=== PATIENT | female | born 1945 | race Caucasian/White ===

== ENCOUNTER 2016-09-02 19:22 | Observation (INO) | payer MEDICARE, MEDICAID ==
[2016-09-02] MEDS ORDERED: Albuterol/Ipratropium NEB.SOL* Albuterol 2.5 MG/Ipratropium 0.5 MG 3 ML INH ONE (19:45)
[2016-09-02] MEDS ORDERED: methylPREDNISolone 125 MG* 2 ML VIAL IV ONE (19:45)
--- NOTE | 2016-09-02 20:00 | ED ---
Judi Samson Claudia, scribed for Rusty Blanco MD on 09/02/16 at 1948 . Shortness of Breath - HPI Summary HPI Summary: 70 year old pt presents to the ED with SOB. Pt notes gradual onset of SX over the past 4-6 days. Pt states productive cough with clear sputum and SOB at rest. Pt denies the use of oxygen at home. Pt states PMHx of Sleep Apnea in which she usually wears a mask but has not recently. Pt denies the use of inhalers She also denies any alleviating or aggravating factors. - History of Current Complaint Chief Complaint: EDShortnessOfBreath Time Seen by Provider: 09/02/16 19:42 Hx Obtained From: Patient Onset/Duration: Gradual Onset, Lasting Days, Still Present Timing: Constant Dyspnea At: Rest Associated Signs & Symptoms: Cough (Productive) - Allergy/Home Medications Allergies/Adverse Reactions: Allergies Allergy/AdvReac Type Severity Reaction Status Date / Time Penicillins [PCN] Allergy Unknown Verified 09/02/16 19:31 Reaction Details Tetanus Toxoid Allergy Unknown Verified 09/02/16 19:31 Reaction Details Tetracycline Allergy Unknown Verified 09/02/16 19:31 Reaction Details Home Medications: Home Medications Atorvastatin* [Lipitor 20 MG*] 20 mg PO BEDTIME 09/03/16 [History Confirmed ] Torsemide TAB* [Demadex*] 20 mg PO DAILY 09/03/16 [History Confirmed 09/03/16] PMH/Surg Hx/FS Hx/Imm Hx Previously Healthy: Yes Endocrine/Hematology History: Reports: Hx Diabetes Denies: Hx Anemia Cardiovascular History: Reports: Hx Hypertension Denies: Hx Congestive Heart Failure, Hx Pacemaker/ICD Respiratory History: Reports: Hx Asthma, Hx Chronic Obstructive Pulmonary Disease (COPD) GI History: Reports: Hx Gall Bladder Disease Denies: Hx Jaundice Sensory History: Denies: Hx Hearing Aid Psychiatric History: Reports: Hx Anxiety, Hx Depression Denies: Hx Panic Disorder - Cancer History Cancer Type, Location and Year: rt breast ca Hx Chemotherapy: Yes Hx Radiation Therapy: Yes - Surgical History Surgery Procedure, Year, and Place: HYSTERECTOMY, LUMPECTOMY TWICE with LYMPH NODE REMOVAL RT SIDE,CHOLECYSTECTOMY Hx Anesthesia Reactions: No Infectious Disease History: No Infectious Disease History: Denies: Traveled Outside the [place] in Last 30 Days - Social History Occupation: Retired Lives: Alone Alcohol Use: None Substance Use Type: Reports: None Hx Tobacco Use: Yes - 40 YRS Smoking Status (MU): Current Every Day Smoker Type: Cigarettes Review of Systems Constitutional: Negative Negative: Fever Eyes: Negative ENT: Negative Cardiovascular: Negative Positive: Shortness Of Breath, Cough - clear productive cough Gastrointestinal: Negative Genitourinary: Negative Musculoskeletal: Negative Skin: Negative Neurological: Negative Psychological: Normal All Other Systems Reviewed And Are Negative: Yes Physical Exam Triage Information Reviewed: Yes Vital Signs On Initial Exam: Initial Vitals Temp Pulse Resp BP Pulse Ox 97.8 F 94 20 151/95 96 09/02/16 19:28 09/02/16 19:28 09/02/16 19:28 09/02/16 19:28 09/02/16 19:28 Vital Signs Reviewed: Yes Appearance: Positive: Ill-Appearing - moderate resp distress Skin: Positive: Warm Head/Face: Positive: Normal Head/Face Inspection Eyes: Positive: SONJA ENT: Positive: Hearing grossly normal Neck: Positive: Supple Respiratory/Lung Sounds: Positive: Decreased Breath Sounds, Rales - coarse diffuse bilat Cardiovascular: Positive: Normal Abdomen Description: Positive: Nontender, Soft Bowel Sounds: Positive: Present Musculoskeletal: Positive: Strength/ROM Intact Neurological: Positive: Sensory/Motor Intact Psychiatric: Positive: Affect/Mood Appropriate Diagnostics - Vital Signs Vital Signs Temp Pulse Resp BP Pulse Ox 09/02/16 19:28 97.8 F 94 20 151/95 96 - Laboratory Result Diagrams: 09/02/16 20:10 09/02/16 20:10 Lab Statement: Any lab studies that have been ordered have been reviewed, and results considered in the medical decision making process. - Radiology CXR Xray Interpretation: Positive (See Comments) - The constellation of findings is most consistent with pulmonary vascular congestion and interstitial edema. Correlate with clinical assessment as well as bronchopneumonia could have a similar appearance. Radiology Interpretation Completed By: Radiologist - EKG 1944 EKG Rhythm: Atrial Fibrillation EKG Interpretation: rapid ventricular response. 110 beats/min Course/Dx - Course Assessment/Plan: MDM: After EKG, CXR, lab work and observation the pt will be admitted to [facility] for further care. - Diagnoses Provider Diagnoses: Respiratory distress - Physician Notifications Discussed Care of Patient With: Respiratory Therapists are paged at 1945. Dicussed pt with Dr. Chapman 2199. - Dr. Chapman will admit to [facility] 2331 Time Discussed With Above Provider: 19:46 - Critical Care Time Critical Care Time: 30-74 min Discharge - Discharge Plan Condition: Fair Disposition: ADMITTED TO [facility] Referrals: Caleb Sosa MD [Primary Care Provider] - The documentation as recorded by the Judi cavazos Claudia accurately reflects the service I personally performed and the decisions made by me, Rusty Blanco MD.
[2016-09-02 20:31] LABS: Hematocrit 45 % (35-47); Mean Corpuscular HGB Conc 32 g/dl (31-36); Mean Corpuscular Hemoglobin 28 pg (27-31); Mean Corpuscular Volume 88 fL (80-97); Mean Platelet Volume 7 um3 (7.4-10.4); Red Blood Count 5.07 10^6/ul (4.0-5.4); Red Cell Distribution Width 19 % (10.5-15); White Blood Count 15.3 10^3/ul (3.5-10.8)
[2016-09-02] MEDS ORDERED: Azithromycin IV(*) 250 MG in NS 0.9% 250 ML* 250 ML IVPB ONE (20:34)
[2016-09-02] MEDS ORDERED: cefTRIAXone VIAL(*) 1,000 MG in NS 0.9% 50 ML* 50 ML IVPB ONE (20:35)
[2016-09-02 20:38] LABS: Albumin 3.4 g/dL (3.2-5.2); BUN/Creatinine Ratio 23.2 (8-20); Calcium 9.1 mg/dL (8.6-10.3); EGFR African American 107.9 (>60); EGFR Non-African American 83.9 (>60); Globulin 3.1 g/dL (2-4); Potassium 4.5 mmol/L (3.5-5.0); Total Bilirubin 0.5 mg/dL (0.2-1.0); Total Protein 6.5 g/dL (6.4-8.9)
[2016-09-02 20:39] LABS: Troponin I 0.01 ng/mL (<0.04)
--- NOTE | 2016-09-02 21:23 | RAD ---
Indication: Multiple days shortness of breath and cough. Clear sputum. Chronic obstructive pulmonary disease. History of tobacco use. Comparison: April 03, 2016 CT and July 06, 2013 chest radiograph. Technique: Sitting AP and lateral chest views. Report: Large body habitus limits image quality. Cardiomegaly and prominent ill-defined central pulmonary vasculature. Diffuse prominence of the mid to basilar interstitial markings. Elevated lung volumes. Negative for pleural effusion or pneumothorax. RIGHT breast and axillary surgical clips. IMPRESSION: The constellation of findings is most consistent with pulmonary vascular congestion and interstitial edema. Correlate with clinical assessment as well as bronchopneumonia could have a similar appearance.
[2016-09-02] MEDS ORDERED: Furosemide IV* 10 MG/ML 10 ML VIAL (100 MG) IV ONE (21:35)
[2016-09-02] MEDS ORDERED: Iodixanol* (CONTRAST) 320 MG/ML 100 ML SDV IV ONE (23:38)
[2016-09-03] MEDS ORDERED: Acetaminop/Codeine 30 MG TAB* 1 TAB (300 MG/30 MG) PO PRN (00:17)
[2016-09-03] MEDS ORDERED: Diazepam TAB(*) 5 MG PO PRN (00:17)
[2016-09-03] MEDS ORDERED: Acetaminophen TAB* 325 MG PO PRN (00:20)
[2016-09-03] MEDS ORDERED: Benzonatate CAP* 100 MG PO PRN (00:20)
[2016-09-03] MEDS ORDERED: Albuterol/Ipratropium NEB.SOL* Albuterol 2.5 MG/Ipratropium 0.5 MG 3 ML INH PRN (00:21)
[2016-09-03] MEDS ORDERED: Dextrose 50% Syringe 50 ML* 25 GM/50 ML SYRINGE IV PUSH PRN (00:21)
[2016-09-03] MEDS ORDERED: Levofloxacin 500 MG IVPREMIX(* 500 MG/100 ML BAG IVPB SCH (01:30)
--- NOTE | 2016-09-03 03:00 | HP ---
CC: Dr. Caleb Sosa* HISTORY AND PHYSICAL: DATE OF ADMISSION: 09/03/16 CHIEF COMPLAINT: Shortness of breath. HISTORY OF PRESENT ILLNESS: The patient is a 70-year-old woman who states over the last couple of days she has been having a bad cough that is incessant. Over the last day and a half, it has gotten much, much worse where she cannot even catch her breath. She said she has had increased wheezing and she cannot even complete a sentence. She denies fevers or chills. When she coughs, clear phlegm comes up. She has no chest tightness. It can happen any time. There is no difference if she is lying flat or sitting up or she is exerting herself. She also notes she does have obstructive sleep apnea and has not used her CPAP in a week because she has not cleaned the mask. PAST MEDICAL HISTORY: She has a past medical history as noted for the sleep apnea; hypertension; diabetes; right breast cancer, status post lumpectomy and chemotherapy 10 years ago; morbid obesity; depression; anxiety; and GERD. PAST SURGICAL HISTORY: Significant for hysterectomy, lumpectomy, and cholecystectomy. CURRENT MEDICATIONS: 1. Torsemide 20 mg daily. 2. Lipitor 20 mg at bedtime. 3. Lantus insulin 26 units subcu q.24 hours. 4. Valium 5 mg 3 times a day as needed. 5. Tylenol with Codeine one tablet every 6 hours as needed. 6. Januvia 50 mg daily. 7. Ramipril 5 mg daily. 8. Paroxetine 40 mg daily. 9. Omeprazole 20 mg daily. ALLERGIES: She has an allergy/adverse reaction to PENICILLIN, which makes her itchy; SULFA, she said she gets violently ill. FAMILY HISTORY: Mother from ALS. Father from lung cancer. SOCIAL HISTORY: Lives alone, a retired [employer]. She still smokes a half to three quarters of a pack a day and has been doing since she was 15 years old , which is 55 years. Healthcare proxy is her sister, María Crenshaw, who lives in [place]. She has not . She has no children. REVIEW OF SYSTEMS: A 14-point review of systems was completed with the patient. All pertinent positives and negatives are in the History of Present Illness; otherwise, it is negative. PHYSICAL EXAMINATION GENERAL: Pleasant woman lying in bed, in no acute distress. VITAL SIGNS: Temperature 97.8 degrees, heart rate 94 beats per minute, respiratory rate 20 breaths per minute, pulse ox 96%, blood pressure 151/95. HEENT: Normocephalic, atraumatic. Pupils equal, round, and reactive to light. Moist mucous membranes. NECK: Supple. No JVD, bruits, palpable thyroid or lymphadenopathy. CHEST: She has got diminished breath sounds bilaterally. CARDIOVASCULAR: S1, S2 appreciated. ABDOMEN: Obese. Positive bowel sounds in all four quadrants, soft, nontender, nondistended. EXTREMITIES: No cyanosis or clubbing. Bilateral edema. +2 peripheral pulses bilaterally. NEUROLOGIC: Alert and oriented x3. Moves all extremities. SKIN: No rashes or abnormalities. DIAGNOSTIC STUDIES/LAB DATA: Sodium 137, potassium 4.5, chloride 102, CO2 31, BUN 16, creatinine 0.69, glucose 119, BNP is 200. White count 15.3, hemoglobin 14.0, hematocrit 45, platelets 294. D-dimer is 274. Chest x-ray is interpreted by Radiology says, the constellation of findings is most consistent with pulmonary vascular congestion and interstitial edema, correlate with clinical assessment as well, bronchial pneumonia could have a similar appearance. EKG shows atrial fibrillation with a rate of 110 beats per minute, normal axis, right bundle branch block pattern. ASSESSMENT AND PLAN: 1. Dyspnea. At this point, it is difficult to say. She has a slightly elevated D- dimer, but does not sound like she is presenting like a PE. It could be her rapid atrial fibrillation, although it is not quite that rapid. This appears to be new onset as well. Certainly an echocardiogram and possibly p.o. Cardizem may benefit her as well. It sounds more like a COPD and she is still a smoker, but she is not wheezing but she is also not moving much air. I will start her on Solu-Medrol, start her on Levaquin. I will start her on DuoNeb but I will also start her on Cardizem and check an echo in the morning. Depending on echo's findings, we may want to pursue a PE study, although I think again this is an unlikely scenario. She will also be a likely candidate for anticoagulation as her CHADS2 score is at least 2. 2. Diabetes mellitus. Hold oral medications; fingersticks with sliding scale insulin and Lantus. 3. Depression, anxiety. Continue Paxil, appears stable. 4. Gastroesophageal reflux disease, stable. Continue PPI. 5. Fluids, electrolytes, nutrition: Consistent carb diet. 6. DVT prophylaxis: Heparin subcu. 7. The patient is a full code. TIME SPENT: Over 75 minutes was spent on this H and P; and more than 40 minutes of which was spent in direct [id number] contact with the patient in evaluation, physical exam and counseling and coordination of care. [id number]/[facility] #: [id number] MTDD
[2016-09-03] MEDS: Insulin GLARGINE(*) 1 UNITS UNIT SUBCUT SCH (03:03)
[2016-09-03] MEDS: methylPREDNISolone SOD 40 MG* 1 ML VIAL IV SCH ×2 (03:03→09:28)
[2016-09-03] MEDS ORDERED: Heparin VIAL(*) 5000 UNITS/ML VIAL (FIVE THOUSAND) SUBCUT SCH (06:00)
[2016-09-03] MEDS: Diltiazem TAB* 30 MG PO SCH ×2 (06:05→12:13)
[2016-09-03] MEDS ORDERED: Enoxaparin(*) 150 MG/ML 1 ML SYRINGE SUBCUT SCH (07:00)
[2016-09-03] MEDS ORDERED: Perflutren Lipid Microsphere* 3 ML VIAL ONE (08:59)
[2016-09-03] MEDS: PARoxetine HCL TAB* 40 MG PO SCH (09:26)
[2016-09-03] MEDS: Ramipril CAP* 5 MG PO SCH (09:26)
[2016-09-03] MEDS: Torsemide TAB* 20 MG PO SCH (09:27)
[2016-09-03] MEDS: Omeprazole CAP* 20 MG PO SCH (09:27)
[2016-09-03] MEDS: Insulin LISPRO* 1 UNITS UNIT SUBCUT SCH ×4 (09:27→21:03)
[2016-09-03] MEDS: CMCS:SitaGLIPtin (NF) 25 MG TAB PO SCH (09:40)
--- NOTE | 2016-09-03 11:20 | RAD ---
Indication: Shortness of breath, elevated d-dimer. Contrast: Administered 96.0 ml of VISAPAQUE 320 mgi/ml CTA of the chest was performed after IV contrast administration. Sagittal and coronal reconstructed images were obtained. Inferior thyroid lobes are heterogeneous with enlarged thyroid gland. The right lobe demonstrates a exophytic nodule arising from the lower pole of the right lobe. The pulmonary arterial tree is poorly opacified and this is a limited exam. Motion artifact degrades the images. The main left and right pulmonary arteries show no evidence of filling defects. The smaller lobar arteries and segmental arteries are limited in evaluation. The aorta demonstrates no evidence of aneurysmal dilatation or aortic dissection. Atelectasis is noted in the left lower lobe as well as in the right middle lobe anteriorly. There appears to be interstitial edema with vascular congestion. Cardiomegaly without evidence of pericardial effusion is noted. Small pleural effusion is noted. The visualized abdominal organs demonstrate an enlarged left lobe suggestive of parenchymal liver disease. No other masses are definitively identified. IMPRESSION: ENLARGED THYROID WHICH APPEARS HETEROGENEOUS. THE MAIN PULMONARY ARTERY DEMONSTRATES NO FILLING DEFECTS. THE SMALLER ARTERIES ARE LIMITED IN EVALUATION. CARDIOMEGALY WITHOUT EVIDENCE OF PERICARDIAL EFFUSION. EVIDENCE OF INTERSTITIAL EDEMA, PLEURAL EFFUSION AND RIGHT MIDDLE LOBE AND LEFT LOWER LOBE ATELECTASIS.
[2016-09-03] MEDS ORDERED: Metoprolol Tartrate TAB* 25 MG PO SCH (13:00)
[2016-09-03] MEDS ORDERED: Diltiazem TAB* 30 MG PO ONE (13:12)
--- NOTE | 2016-09-03 13:12 | PN ---
Subjective Date of Service: 09/03/16 Interval History: Pt is feeling well. She states she feels well enough to actually go home. She denies any SOB at this time. No chest pain. Objective Active Medications: Acetaminophen (Tylenol Tab*) 650 mg PO Q4H PRN PRN Reason: FEVER/PAIN Acetaminophen/Codeine Phosphate (Tylenol/Codeine 30 Mg Tab*) 1 tab PO Q6H PRN PRN Reason: PAIN Albuterol/Ipratropium (Duoneb (Albuterol 2.5 Mg/Ipratropium 0.5 Mg)) 1 neb INH Q4H PRN PRN Reason: SOB/WHEEZING Atorvastatin Calcium (Lipitor*) 20 mg PO BEDTIME AILEEN Benzonatate (Tessalon Cap*) 200 mg PO TID PRN PRN Reason: COUGH Dextrose (D50w Syringe 50 Ml*) 12.5 gm IV PUSH .FOR FS < 60 - SS PRN PRN Reason: FS < 60 Diazepam (Valium Tab(*)) 5 mg PO TID PRN PRN Reason: ANXIETY Diltiazem HCl (Cardizem Tab*) 60 mg PO Q6HR [facility] Insulin Glargine (Lantus(*)) 26 units SUBCUT Q24H [facility] Last Admin: 09/03/16 03:03 Dose: 26 units Insulin Human Lispro (Humalog*) 0 units SUBCUT ACHS [facility] PRN Reason: Protocol Last Admin: 09/03/16 12:11 Dose: 6 units Omeprazole (Prilosec Cap*) 20 mg PO DAILY [facility] Last Admin: 09/03/16 09:27 Dose: 20 mg Paroxetine HCl (Paxil Tab*) 40 mg PO DAILY [facility] Last Admin: 09/03/16 09:26 Dose: 40 mg Ramipril (Altace Cap*) 5 mg PO DAILY [facility] Last Admin: 09/03/16 09:26 Dose: 5 mg Rivaroxaban (Xarelto (*)) 20 mg PO 2100 [facility] Sitagliptin Phosphate (Januvia (Nf)) 50 mg PO DAILY [facility] Last Admin: 09/03/16 09:40 Dose: 50 mg Torsemide (Demadex*) 20 mg PO DAILY [facility] Last Admin: 09/03/16 09:27 Dose: 20 mg Vital Signs 09/03/16 09/03/16 09/03/16 01:11 07:21 09:29 Temperature 98.4 F 98.0 F Pulse Rate 110 106 86 Respiratory 26 22 16 Rate Blood Pressure 144/73 136/84 (mmHg) O2 Sat by Pulse 97 94 92 Oximetry 09/03/16 11:09 Temperature 98.0 F Pulse Rate 103 Respiratory 20 Rate Blood Pressure 124/54 (mmHg) O2 Sat by Pulse 94 Oximetry Oxygen Devices in Use Now: None Appearance: Elderly female sitting up in a chair eating lunch, NAD Eyes: No Scleral Icterus Ears/Nose/Mouth/Throat: Mucous Membranes Moist Respiratory: Symmetrical Chest Expansion and Respiratory Effort, - - fine crackles about [address] bilaterally Cardiovascular: NL Sounds; No Murmurs; No JVD, No Edema, - - irregularly irregular, mildly tachycardic Abdominal: NL Sounds; No Tenderness; No Distention Extremities: No Clubbing, Cyanosis Skin: No Rash or Ulcers, No Nodules or Sclerosis Neurological: Alert and Oriented x 3 Result Diagrams: 09/02/16 20:10 09/02/16 20:10 Assess/Plan/Problems-Billing Ms Burk is a 70 yo F who has a h/o HTN, type II DM, DANO and depression/ anxiety who presented to the ER with c/o chest pain. - Patient Problems (1) Dyspnea Current Visit: Yes Status: Acute Code(s): R06.00 - DYSPNEA, UNSPECIFIED SNOMED Code(s): 662055596 Comment: I am most suspicous that the patient's dyspnea is multifactorial from possible COPD and possibly CHF from afib. The patient does not feel palplitations so she could have developed a tachycardia induced CM. Her SOB is much improved today after being treated for a COPD exacerbation and CHF. Will continue to treat for COPD exacerbation with steroids but stop ABx as there is no clear signs the patient is infected. (2) Afib Current Visit: Yes Status: Acute Code(s): I48.91 - UNSPECIFIED ATRIAL FIBRILLATION SNOMED Code(s): 13370733 Comment: This is a new diagnosis. Will continue on diltiazem for now (if echo shows reduced EF will need to change to metoprolol). I discussed anticoagulation options and at this time the patient chooses to start on xarelto. Echo results are pending. The patient is hopeful for d/c home today and if she is able to get her HR under control and her echo is not concerning than that will be a possibility. (3) Hypertension Current Visit: Yes Status: Acute Code(s): I10 - ESSENTIAL (PRIMARY) HYPERTENSION SNOMED Code(s): 79643725 Comment: BP is under good control. Continue current regimen but monitor as I have increased the diltiazem dose. (4) Diabetes Current Visit: Yes Status: Chronic Code(s): E11.9 - TYPE 2 DIABETES MELLITUS WITHOUT COMPLICATIONS SNOMED Code(s): 19015074 Comment: Type II DM. Sugars are under poor control. Increase lantus to 30 units. Continue lispro sliding scale. (5) GERD (gastroesophageal reflux disease) Current Visit: Yes Status: Chronic Code(s): K21.9 - GASTRO-ESOPHAGEAL REFLUX DISEASE WITHOUT ESOPHAGITIS SNOMED Code(s): 281725693 Comment: Continue omeprazole. (6) DVT prophylaxis Current Visit: Yes Status: Acute Code(s): WHS9348 - SNOMED Code(s): 043544629 Comment: xarelto to start tonight (7) Full code status Current Visit: Yes Status: Acute Code(s): Z78.9 - OTHER SPECIFIED HEALTH STATUS SNOMED Code(s): 842640327
[2016-09-03] MEDS: Diltiazem TAB* 60 MG PO SCH (17:31)
[2016-09-03] MEDS ORDERED: Rivaroxaban TAB(*) 20 MG TAB PO SCH (18:00)
--- NOTE | 2016-09-03 18:05 | ECHO ---
Patient: DEJON BARBA [facility] Rec#: [id number] : 1945 Date: 09/03/2016 Age: 70y Height: 165.1 cm / 65.0 in Weight: 126.1 kg / 277.9 lbs Sex: F BSA: 2.28 Room#: [facility] Admit Date#: 09/03/2016 Type: Inpatient Referring: Matthew Chapman MD Reading: Olu Asif MD Film Color Tester: Jennifer PelaezMARGI CC: Caleb Sosa MD Transthoracic Echocardiogram Indication: New A-Fib BP: 144/73 HR: 96 Rhythm: A-Fib Indications Atrial Fibrillation Findings History: HTN, DM, breast cancer, chemotherapy, [place], GERD, DANO with CPAP, smoker. Technical Comments: The study is technically difficult. The study is technically limited due to poor apical windows. The study is technically limited due to patient body habitus. Completed at 1015. Left Ventricle: The left ventricular chamber size is normal. Mild concentric left ventricular hypertrophy is observed. Global left ventricular wall motion and contractility are within normal limits. The left ventricle appears hyperdynamic. The estimated ejection fraction is 60-65%. The assessment of diastolic function is non-diagnostic. Left Atrium: The left atrium is moderately dilated. Right Ventricle: The right ventricle is mildly dilated. The right ventricular global systolic function is mildly reduced. Right Atrium: The right atrial cavity size is severely dilated. Aortic Valve: The aortic valve is trileaflet. The aortic valve leaflets are mildly thickened. There is moderate thickening of the non coronary cusp. There is no evidence of aortic regurgitation. There is no evidence of aortic stenosis. Mitral Valve: The mitral valve leaflets are mildly thickened. There is trace to mild mitral regurgitation. There is no evidence of mitral stenosis. Tricuspid Valve: The tricuspid valve leaflets are normal. There is moderate tricuspid regurgitation. There is evidence of moderate pulmonary hypertension. There is no tricuspid stenosis. Pulmonic Valve: The pulmonic valve appears normal. There is a trace pulmonic regurgitation. There is no pulmonic stenosis. Pericardium: There is no significant pericardial effusion. A pericardial fat pad is visualized. Aorta: There is no dilatation of the ascending aorta. There is no dilatation of the aortic arch. There is no dilation of the aortic root. Pulmonary Artery: The main pulmonary artery is not well visualized. Venous: The inferior vena cava is dilated. There is less than 50% respiratory change in the inferior vena cava dimension. Contrast: Definity was used to optimize study. 2.5mL of diluted Definity was utilized. Intravenous contrast was used to enhance endocardial border definition. Conclusions The study is technically difficult. Mild concentric left ventricular hypertrophy is observed. The left ventricle appears hyperdynamic. The estimated ejection fraction is 60-65%. The left atrium is moderately dilated. The right ventricle is mildly dilated. The right ventricular global systolic function is mildly reduced. The right atrial cavity size is severely dilated. The aortic valve leaflets are mildly thickened. There is moderate thickening of the non coronary cusp. There is trace to mild mitral regurgitation. There is moderate tricuspid regurgitation. There is evidence of moderate pulmonary hypertension. Similar to 06/2013 Measurements Name Value Normal Range RVIDd (AP) 2D 3.7 cm (0.9 - 2.6) RVDdMajor (2D) 3.9 cm (2.2 - 4.4) RAd ISD 4CH 6.6 cm (3.4 - 4.9) RA (A4C)W 6.8 cm (2.9 - 4.6) IVSd (2D) 1.1 cm (0.6 - 1) LVPWd (2D) 1.1 cm (0.6 - 1) LVIDd (2D) 5 cm (3.6 - 5.4) LVIDs (2D) 3.5 cm - LV FS (2D) 30 % (25 - 45) Aortic Annulus 1.9 cm (1.4 - 2.6) Ao root diameter (2D) 2.8 cm (2.1 - 3.5) Ascending Ao 3.4 cm (2.1 - 3.4) Aortic arch 2.5 cm (1.8 - 3.4) LA dimension (AP) 2D 5.2 cm (2.3 - 3.8) LAd ISD 4CH 6.7 cm (2.9 - 5.3) LA ISD 4CH W 4.6 cm (2.5 - 4.5) Name Value Normal Range LA ESV SP 4CH (A/L) 94 ml - LA ESV SP 2CH (A/L) 114 ml - LA ESV BP (A/L) 105 ml - LA ESV BP (A/L) index 46.02 ml/m2 - LA ESV SP 4CH (MOD) 87 ml - LA ESV SP 2CH (MOD) 104 ml - Name Value Normal Range MV E-wave Vmax 1.29 m/sec - MV deceleration time 216.2 msec - LV septal e' Vmax 0.09 m/sec - LV lateral e' Vmax 0.07 m/sec - LV E:e' septal ratio 14.3 ratio - LV E:e' lateral ratio 18.4 ratio - Name Value Normal Range AV Vmax 1.6 m/sec - AV VTI 33.02 cm - AV peak gradient 10.64 mmHg - AV mean gradient 6.16 mmHg - LVOT Vmax 1.04 m/sec - LVOT VTI 21.48 cm - LVOT peak gradient 4.33 mmHg - LVOT mean gradient 2.55 mmHg - ROSALIND Vmax 0.76 m/sec - Name Value Normal Range TR Vmax 3.1 m/sec - TR peak gradient 38 mmHg - RAP 15 mmHg - RVSP 53 mmHg - IVC diameter 2.8 cm - Name Value Normal Range PV Vmax 0.89 m/sec - PV peak gradient 3.22 mmHg -
[2016-09-03] MEDS ORDERED: Atorvastatin* 20 MG TAB PO SCH (21:00)
[2016-09-04] MEDS: Diltiazem TAB* 60 MG PO SCH ×3 (00:35→12:03)
[2016-09-04] MEDS: Insulin GLARGINE(*) 1 UNITS UNIT SUBCUT SCH (00:35)
[2016-09-04 06:03] LABS: Hematocrit 41 % (35-47); Hemoglobin 13.1 g/dl (12.0-16.0); Mean Corpuscular HGB Conc 32 g/dl (31-36); Mean Corpuscular Hemoglobin 27 pg (27-31); Mean Corpuscular Volume 87 fL (80-97); Mean Platelet Volume 7 um3 (7.4-10.4); Red Blood Count 4.76 10^6/ul (4.0-5.4); Red Cell Distribution Width 18 % (10.5-15); White Blood Count 15.2 10^3/ul (3.5-10.8)
[2016-09-04 06:43] LABS: EGFR African American 82.5 (>60); EGFR Non-African American 64.2 (>60); Potassium 4.1 mmol/L (3.5-5.0)
[2016-09-04] MEDS: Insulin LISPRO* 1 UNITS UNIT SUBCUT SCH ×2 (08:19→12:03)
[2016-09-04] MEDS: PARoxetine HCL TAB* 40 MG PO SCH (08:20)
[2016-09-04] MEDS: Omeprazole CAP* 20 MG PO SCH (08:20)
[2016-09-04] MEDS: Ramipril CAP* 5 MG PO SCH (08:20)
[2016-09-04] MEDS: Torsemide TAB* 20 MG PO SCH (08:21)
[2016-09-04] MEDS: CMCS:SitaGLIPtin (NF) 25 MG TAB PO SCH (08:21)
[2016-09-04] MEDS ORDERED: Rivaroxaban TAB(*) 20 MG TAB PO SCH (09:00)
[2016-09-04] MEDS ORDERED: predniSONE TAB* 20 MG PO SCH (09:00)
[2016-09-04 11:59] VITALS: BP 133/62
--- NOTE | 2016-09-04 15:17 | PN ---
Subjective Date of Service: 09/04/16 Interval History: Pt is feeling well. No SOB. She has been ambulating without any difficulty. She feels ready for d/c home. Objective Active Medications: Acetaminophen (Tylenol Tab*) 650 mg PO Q4H PRN PRN Reason: FEVER/PAIN Acetaminophen/Codeine Phosphate (Tylenol/Codeine 30 Mg Tab*) 1 tab PO Q6H PRN PRN Reason: PAIN Albuterol/Ipratropium (Duoneb (Albuterol 2.5 Mg/Ipratropium 0.5 Mg)) 1 neb INH Q4H PRN PRN Reason: SOB/WHEEZING Atorvastatin Calcium (Lipitor*) 20 mg PO BEDTIME [facility] Last Admin: 09/03/16 21:03 Dose: 20 mg Benzonatate (Tessalon Cap*) 200 mg PO TID PRN PRN Reason: COUGH Dextrose (D50w Syringe 50 Ml*) 12.5 gm IV PUSH .FOR FS < 60 - SS PRN PRN Reason: FS < 60 Diazepam (Valium Tab(*)) 5 mg PO TID PRN PRN Reason: ANXIETY Last Admin: 09/03/16 21:03 Dose: 5 mg Diltiazem HCl (Cardizem Tab*) 60 mg PO Q6HR [facility] Last Admin: 09/04/16 12:03 Dose: 60 mg Insulin Glargine (Lantus(*)) 26 units SUBCUT Q24H [facility] Last Admin: 09/04/16 00:35 Dose: 26 units Insulin Human Lispro (Humalog*) 0 units SUBCUT ACHS [facility] PRN Reason: Protocol Last Admin: 09/04/16 12:03 Dose: 3 units Omeprazole (Prilosec Cap*) 20 mg PO DAILY [facility] Last Admin: 09/04/16 08:20 Dose: 20 mg Paroxetine HCl (Paxil Tab*) 40 mg PO DAILY [facility] Last Admin: 09/04/16 08:20 Dose: 40 mg Prednisone (Deltasone Tab*) 20 mg PO DAILY [facility] Last Admin: 09/04/16 08:20 Dose: 20 mg Ramipril (Altace Cap*) 5 mg PO DAILY [facility] Last Admin: 09/04/16 08:20 Dose: 5 mg Rivaroxaban (Xarelto (*)) 20 mg PO 1800 [facility] Last Admin: 09/03/16 18:33 Dose: 20 mg Sitagliptin Phosphate (Januvia (Nf)) 50 mg PO DAILY [facility] Last Admin: 09/04/16 08:21 Dose: 50 mg Torsemide (Demadex*) 20 mg PO DAILY [facility] Last Admin: 09/04/16 08:21 Dose: 20 mg Vital Signs 09/03/16 09/03/16 09/03/16 15:17 17:30 19:35 Temperature 97.3 F 97.7 F 97.8 F Pulse Rate 120 91 69 Respiratory 24 20 28 Rate Blood Pressure 136/64 141/52 132/60 (mmHg) O2 Sat by Pulse 97 96 83 Oximetry 09/03/16 09/03/16 09/03/16 19:51 21:03 23:54 Temperature 98.5 F Pulse Rate 105 Respiratory 24 16 Rate Blood Pressure 142/66 (mmHg) O2 Sat by Pulse 93 94 Oximetry 09/04/16 09/04/16 09/04/16 03:31 03:33 03:50 Temperature 98.3 F Pulse Rate 100 Respiratory 16 Rate Blood Pressure 135/68 (mmHg) O2 Sat by Pulse 94 94 93 Oximetry 09/04/16 09/04/16 09/04/16 07:48 10:11 11:40 Temperature 97.8 F 97.6 F Pulse Rate 90 92 61 Respiratory 20 18 18 Rate Blood Pressure 125/64 133/62 (mmHg) O2 Sat by Pulse 93 96 96 Oximetry Oxygen Devices in Use Now: Nasal Cannula - 96%-5L Appearance: Elderly obese female sitting up in a chair, NAD Eyes: No Scleral Icterus Ears/Nose/Mouth/Throat: Mucous Membranes Moist Respiratory: Symmetrical Chest Expansion and Respiratory Effort, Clear to Auscultation Cardiovascular: NL Sounds; No Murmurs; No JVD, No Edema, - - irregularly irregular, controlled rate Abdominal: NL Sounds; No Tenderness; No Distention Extremities: No Clubbing, Cyanosis Skin: No Rash or Ulcers, No Nodules or Sclerosis Neurological: Alert and Oriented x 3 Result Diagrams: 09/04/16 04:31 09/04/16 04:31 Microbiology and Other Data: Microbiology 09/03/16 06:42 Aerobic Blood Culture - Preliminary Blood Venous No Growth Day 1 Anaerobic Blood Culture - Preliminary No Growth Day 1 09/03/16 06:42 Aerobic Blood Culture - Preliminary Blood Venous No Growth Day 1 Anaerobic Blood Culture - Preliminary No Growth Day 1 Assess/Plan/Problems-Billing Ms Burk is a 70 yo F who has a h/o HTN, type II DM, DANO and depression/ anxiety who presented to the ER with c/o chest pain. - Patient Problems (1) Dyspnea Current Visit: Yes Status: Acute Code(s): R06.00 - DYSPNEA, UNSPECIFIED SNOMED Code(s): 315333813 Comment: Much improved. The patient is supposed to be using O2 at 4L continuously but has not been reliably at home. Will resume azithromycin given her persistenly elevated WBC count, taper prednisone for the possible COPD exacerbation. Her HR is controlled and there was no evidence of HF on the echo. She does have moderate pulmonary HTN which also likely contributes. (2) Afib Current Visit: Yes Status: Acute Code(s): I48.91 - UNSPECIFIED ATRIAL FIBRILLATION SNOMED Code(s): 49337894 Comment: This is a new diagnosis. HR is controlled on 240mg of diltiazem today-will change to CD formulation. Continue xarelto. Follow up with PCP in next several days to ensure HR remains controlled. (3) Hypertension Current Visit: Yes Status: Acute Code(s): I10 - ESSENTIAL (PRIMARY) HYPERTENSION SNOMED Code(s): 61709946 Comment: BP is under good control-continue current regimen. (4) Diabetes Current Visit: Yes Status: Chronic Code(s): E11.9 - TYPE 2 DIABETES MELLITUS WITHOUT COMPLICATIONS SNOMED Code(s): 14071436 Comment: Resume januvia and change lantus to 28 units SQ daily. (5) GERD (gastroesophageal reflux disease) Current Visit: Yes Status: Chronic Code(s): K21.9 - GASTRO-ESOPHAGEAL REFLUX DISEASE WITHOUT ESOPHAGITIS SNOMED Code(s): 334749510 Comment: Continue omeprazole. (6) DVT prophylaxis Current Visit: Yes Status: Acute Code(s): MFE4240 - SNOMED Code(s): 952559943 Comment: xarelto (7) Full code status Current Visit: Yes Status: Acute Code(s): Z78.9 - OTHER SPECIFIED HEALTH STATUS SNOMED Code(s): 060526899
--- NOTE | 2016-09-04 17:08 | DS ---
CC: Dr. Sosa* DISCHARGE SUMMARY: DATE OF ADMISSION: 09/03/16 DATE OF DISCHARGE: 09/04/16 PRIMARY CARE PROVIDER: Dr. Sosa. PRINCIPAL DIAGNOSES: 1. Atrial fibrillation with rapid ventricular response. 2. Possible chronic obstructive pulmonary disease exacerbation. SECONDARY DIAGNOSES: 1. Tobacco abuse. 2. Type 2 diabetes. 3. Obesity. 4. Hypertension. DISCHARGE MEDICATIONS: 1. Torsemide 20 mg p.o. daily. 2. Lipitor 20 mg p.o. q.h.s. 3. Lantus 28 units subcutaneous daily (new dose). 4. Diazepam 5 mg p.o. t.i.d. p.r.n. anxiety. 5. Tylenol with Codeine 30 mg one tab p.o. q.6 hours p.r.n. pain. 6. Januvia 50 mg p.o. daily. 7. Ramipril 5 mg p.o. daily. 8. Paroxetine 40 mg p.o. daily. 9. Omeprazole 20 mg p.o. daily. 10. Prednisone 20 mg p.o. daily x2 days and 10 mg p.o. daily x2 days. 11. Xarelto 20 mg p.o. daily. 12. Nicotine patch 14 mg transdermal daily. 13. Nicotine gum 2 mg p.o. q.2 hours p.r.n. craving. 14. Diltiazem CD 240 mg p.o. daily. 15. Tessalon 200 mg p.o. t.i.d. p.r.n. cough. 16. Azithromycin 250 mg p.o. daily x3 days. HOSPITAL COURSE: Ms. Burk is a 70-year-old female who presented to the emergency room on 09/02/16 with complaints of shortness of breath. The patient was admitted for evaluation and treatment of this. It was felt that her shortness of breath was likely multifactorial related to being in rapid atrial fibrillation and possibly COPD exacerbation. The patient was treated for both. The patient improved relatively quickly with the administration of oxygen, which she is noncompliant with at home, treatment with steroids and antibiotics for possible COPD exacerbation and rate control for her atrial fibrillation. The atrial fibrillation is a new problem for the patient. She was started on diltiazem 30 mg p.o. q.6 hours. With this, her heart rate was improved though not under optimal control. It was increased to 60 mg every 6 hours and with this, her heart rate has been under good control. The patient will be switched to diltiazem CD 240 mg p.o. daily. The patient has also been started on Xarelto after a lengthy discussion about anticoagulation options. The patient understands that she needs to watch her stools for signs of bleeding and understands that she needs to be cautious when she is up and walking, so she does not fall. The patient did undergo transthoracic echocardiogram, which revealed a normal EF. The left atrium was noted to be mildly dilated. The right ventricular global systolic function was noted to be mildly reduced and the right atrial cavity size is severely dilated. The patient has evidence of moderate pulmonary hypertension and I suspect this is related to her history of COPD and smoking. The patient did undergo a CTA of the chest to rule out PE. No pulmonary embolism was noted in the main pulmonary arteries though the smaller arteries are limited in evaluation. She was noted to have interstitial edema and pleural effusions. In terms of the possible COPD exacerbation, the patient again received steroids and antibiotic therapy. She will continue on prednisone taper over the next 4 days and azithromycin for 3 more days. She has no wheezing. We did realize that the patient was not using her oxygen as prescribed at home and the importance of this has been stressed to her. At this point, the patient is felt to be stable for discharge home. FOLLOWUP CONCERNS: The patient is being discharged to home today, 09/04/16. She is to follow up with Dr. Sosa on 09/09/16 at 02:20 p.m. ACTIVITY LEVEL: As tolerated. DIET: Low fat, diabetic. CONDITION ON DISCHARGE: Stable. TIME SPENT: 35 minutes was spent discharging this patient. [id number]/[facility] #: [id number] MIHAELA
== END 2016-09-04 16:06 | disposition home or self-care (01) ==
LOC: ED 19:22 → MEDTELE 09-03 01:10
PROVIDERS: ADMIT Internal Medicine; ATTEND Hospitalist
DX: I48.91 Unspecified atrial fibrillation (principal); J44.9 Chronic obstructive pulmonary disease, unspecified; E11.9 Type 2 diabetes mellitus without complications; Z79.4 Long term (current) use of insulin; E66.9 Obesity, unspecified; I27.2 Other secondary pulmonary hypertension; J90 Pleural effusion, not elsewhere classified; I34.0 Nonrheumatic mitral (valve) insufficiency; I36.1 Nonrheumatic tricuspid (valve) insufficiency; F41.8 Other specified anxiety disorders; G47.33 Obstructive sleep apnea (adult) (pediatric); I10 Essential (primary) hypertension; R06.02 Shortness of breath; R60.9 Edema, unspecified; Z79.01 Long term (current) use of anticoagulants; Z79.899 Other long term (current) drug therapy; Z88.0 Allergy status to penicillin; Z88.8 Allergy status to other drugs, medicaments and biological substances; F17.210 Nicotine dependence, cigarettes, uncomplicated
CPT/HCPCS: 36415; 71020; 71275; 80048; 80053; 83605; 83880; 84484; 85025; 85027; 85379; 87040; 93005; 93306; 94640; 94760; 96365; 96367; 96372; 96375; 99291; A9270-GY; C8929; G0378; J0456; J0696; J1650; J1940; J1956; J2920; J2930; J7512; Q9967